=== PATIENT | male | born 1950 | race Caucasian/White ===

== ENCOUNTER 2018-07-09 08:15 | Emergency (ER) | payer MEDICARE ==
[~2018-07-09] VITALS: Ht 185.4 cm; Wt 95.0 kg
[~2018-07-09 08:15] MED LIST: B/P MED; LOSA100T2 PO; SIMV20TA3 PO
[2018-07-09 09:05] LABS: BASOPHILS # (AUTO) 0.06 x10^3/uL (0-0.1); BASOPHILS % (AUTO) 1 % (0-1); EOSINOPHILS # (AUTO) 0.24 x10^3/uL (0-0.4); EOSINOPHILS % (AUTO) 3 % (1-7); LYMPHOCYTES # (AUTO) 3.45 x10^3/uL (1-3.4); LYMPHOCYTES % (AUTO) 38 % (22-44); MD NO; MEAN CORPUSCULAR HEMOGLOBIN 31.4 pg (27.5-34.5); MEAN CORPUSCULAR HGB CONC 33.4 g/dL (33.2-36.2); MEAN CORPUSCULAR VOLUME 93.9 fL (81-97); MEAN PLATELET VOLUME 7.5 fL (7.4-10.4); MONOCYTES # (AUTO) 0.74 x10^3/uL (0.2-0.8); MONOCYTES % (AUTO) 8 % (2-9); NEUTROPHILS # (AUTO) 4.54 x10^3/uL (1.8-6.8); NEUTROPHILS % (AUTO) 50 % (42-75); PLATELET COUNT 207 x10^3/uL (130-400); RED BLOOD COUNT 6.02 x10^6/uL (4.38-5.82); RED CELL DISTRIBUTION WIDTH 13.1 % (9.4-14.8)
[2018-07-09 09:14] LABS: ALANINE AMINOTRANSFERASE 108 U/L (12-78); ALBUMIN 3.6 g/dL (3.4-5.0); ANION GAP 9 mmol/L (5-15); CALCIUM 8.7 mg/dL (8.5-10.1); CHLORIDE 108 mmol/L (98-107); CREATININE 1.17 mg/dL (0.7-1.3)
[2018-07-09 09:16] LABS: ALKALINE PHOSPHATASE 103 U/L (45-117); BILIRUBIN,TOTAL 1.1 mg/dL (0.2-1.0); TOTAL PROTEIN 7.5 g/dL (6.4-8.2)
[2018-07-09 09:33] LABS: MICROSCOPIC AUTO
[2018-07-09 09:36] LABS: CULTURE INDICATED? NO
[2018-07-09 10:51] VITALS: BP 155/86
== END 2018-07-09 11:47 | disposition home or self-care (01) ==
LOC: ED 10:42
DX: R31.0 Gross hematuria (principal); E78.5 Hyperlipidemia, unspecified; I10 Essential (primary) hypertension; Z88.1 Allergy status to other antibiotic agents
CPT/HCPCS: 36415; 74176; 80053; 81001; 85025; 99284

== ENCOUNTER 2018-07-10 06:02 | Emergency (ER) | payer MEDICARE ==
[~2018-07-10] VITALS: Ht 185.4 cm; Wt 217.0 kg
[2018-07-10] MEDS ORDERED: SODIUM CHLORIDE FLUSH 10ML SYR IVF ONE (06:30)
[2018-07-10 06:50] LABS: BASOPHILS # (AUTO) 0.08 x10^3/uL (0-0.1); BASOPHILS % (AUTO) 1 % (0-1); EOSINOPHILS # (AUTO) 0.28 x10^3/uL (0-0.4); EOSINOPHILS % (AUTO) 4 % (1-7); LYMPHOCYTES # (AUTO) 2.92 x10^3/uL (1-3.4); LYMPHOCYTES % (AUTO) 39 % (22-44); MD NO; MEAN CORPUSCULAR HEMOGLOBIN 31.8 pg (27.5-34.5); MEAN CORPUSCULAR HGB CONC 34.1 g/dL (33.2-36.2); MEAN CORPUSCULAR VOLUME 93.3 fL (81-97); MEAN PLATELET VOLUME 7.8 fL (7.4-10.4); MONOCYTES # (AUTO) 0.67 x10^3/uL (0.2-0.8); MONOCYTES % (AUTO) 9 % (2-9); NEUTROPHILS # (AUTO) 3.63 x10^3/uL (1.8-6.8); NEUTROPHILS % (AUTO) 48 % (42-75); PLATELET COUNT 195 x10^3/uL (130-400); RED BLOOD COUNT 5.94 x10^6/uL (4.38-5.82); RED CELL DISTRIBUTION WIDTH 13.3 % (9.4-14.8)
[2018-07-10 07:02] LABS: ALBUMIN 3.4 g/dL (3.4-5.0); ANION GAP 8 mmol/L (5-15); CALCIUM 8.8 mg/dL (8.5-10.1); CHLORIDE 107 mmol/L (98-107); CREATININE 1.14 mg/dL (0.7-1.3)
[2018-07-10] MEDS ORDERED: OMNIPAQUE 350 MG/ML, 100ML BOTTLE ONE (07:58)
[2018-07-10 08:57] LABS: CULTURE INDICATED? YES; MICROSCOPIC INDICATED
[2018-07-10 09:51] VITALS: BP 164/90
== END 2018-07-10 10:25 | disposition home or self-care (01) ==
LOC: ED 06:11
DX: N40.1 Benign prostatic hyperplasia with lower urinary tract symptoms (principal); R33.8 Other retention of urine; N30.01 Acute cystitis with hematuria; E78.5 Hyperlipidemia, unspecified; I10 Essential (primary) hypertension
CPT/HCPCS: 36415; 51702; 74177; 80048; 81001; 82040; 85025; 87086; 99284; Q9967

== ENCOUNTER 2018-07-11 06:57 | Emergency (ER) | payer MEDICARE ==
[~2018-07-11] VITALS: Ht 185.4 cm; Wt 99.8 kg
[2018-07-11 09:07] VITALS: BP 155/65
== END 2018-07-11 09:10 | disposition home or self-care (01) ==
LOC: ED 07:43
DX: T83.098A Other mechanical complication of other urinary catheter, initial encounter (principal); R31.9 Hematuria, unspecified; I10 Essential (primary) hypertension; E78.5 Hyperlipidemia, unspecified
CPT/HCPCS: 51700; 99284

== ENCOUNTER 2018-07-25 17:14 | Emergency (ER) | payer MEDICARE ==
[~2018-07-25] VITALS: Ht 185.4 cm; Wt 98.0 kg
--- NOTE | 2018-07-25 19:34 | NUR ---
WOOD REMOVED PER ORDER. CLOUDY YELLOW URINE IN COLLECTION BAG. PT STATES WOOD WAS PLACED ON 07/10/18; UROLOGY APPT ON 07/28/2018. PT NOTIFIED OF NEED FOR URINE SPECIMEN; URINAL PROVIDED, DRINKING WATER PROVIDED.
--- NOTE | 2018-07-25 20:21 | NUR ---
VOIDED URINE IN URINAL. PT REPORTS INITIAL STINGING W/ URINATION THAT EASED W/ CONTINUING FLOW. PT DENIES PAIN. CURRENTLY DRESSED & AWAITING DC.
--- NOTE | 2018-07-25 20:34 | NUR ---
GIVEN DC INSTRUCTION AFTER DISCUSSED WITH PRIMARY RN COLLETTE PT UDNERSTOOD WELL DC INSTRUCTION PT UP AMBULATED TO CHECK OUT
[2018-07-25 20:35] VITALS: BP 134/87
== END 2018-07-25 20:37 | disposition home or self-care (01) ==
LOC: ED 20:31
DX: T83.098A Other mechanical complication of other urinary catheter, initial encounter (principal); R30.0 Dysuria; I10 Essential (primary) hypertension
CPT/HCPCS: 99281; 99282